=== PATIENT | male | born 1945 | race Caucasian/White ===

== ENCOUNTER → 2021-08-06 | Outpatient (CLI) | payer MEDICARE ==
[2021-08-07 10:14] LABS: CREATININE, URINE 83.9 mg/dL (Not Estab.)
== END ==
LOC: US 13:26
PROVIDERS: Internal Medicine Nephrology
DX: I12.9 Hypertensive chronic kidney disease with stage 1 through stage 4 chronic kidney disease, or unspecified chronic kidney disease (principal); N18.9 Chronic kidney disease, unspecified
CPT/HCPCS: 36415; 80053; 81001; 82043; 82570; 84156